=== PATIENT | male | born 1995 | race Caucasian/White ===

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

== ENCOUNTER 2017-08-27 01:29 | Emergency (ER) | payer OTHER ==
[~2017-08-27] VITALS: Ht 170.2 cm; Wt 58.4 kg
[2017-08-27] MEDS ORDERED: NAPROSYN500 MG PO (02:02)
[2017-08-27 02:15] VITALS: BP 141/85
== END 2017-08-27 02:20 | disposition home or self-care (01) ==
LOC: EME 01:29 → EXP 01:29
DX: S63.501A Unspecified sprain of right wrist, initial encounter (principal); W18.30XA Fall on same level, unspecified, initial encounter
CPT/HCPCS: 73110; 99281; 99283

== ENCOUNTER 2018-01-18 17:51 | Emergency (ER) | payer OTHER ==
[~2018-01-18] VITALS: Ht 172.7 cm; Wt 61.0 kg
[~2018-01-18 17:51] MED LIST changes: +NAPROSYN500 MG PO
[2018-01-18 20:54] LABS: HEMATOCRIT 45.7 % (38.0-50.0); HEMOGLOBIN 17.1 G/DL (12.5-16.6); MCH 33.8 PG (29.0-34.0); MCHC 37.4 G/DL (30.0-36.0); MCV 90.3 FL (86-99); RBC DIS.WIDTH-CV 11.4 % (11.8-14.6); RBC DIS.WIDTH-SD 37.3 % (39-53); RED BLOOD COUNT 5.06 M/uL (4.00-5.50); WHITE BLOOD COUNT 8.5 K/uL (4.1-10.2)
[2018-01-18 20:58] LABS: D-DIMER ELISA < 150.00 ng/mLDDU (<230)
[2018-01-18 21:02] LABS: CHLORIDE 102 mEq/L (99-109); POTASSIUM 4.1 mEq/L (3.7-5.4); SODIUM 139 mEq/L (136-147)
[2018-01-18 21:03] LABS: MAGNESIUM 2.5 mg/dL (1.3-2.7)
[2018-01-18 21:04] LABS: GLUCOSE 75 mg/dL (70-99)
[2018-01-18 21:08] LABS: GFR ESTIMATE (CALCULATED) > 59 mL/min/ (58.99-99999)
[2018-01-18 21:09] LABS: UREA NITROGEN (BUN) 21 mg/dL (9-23)
[2018-01-18 21:11] LABS: CREATINE KINASE 182 IU/L (1-294)
[2018-01-18 21:13] LABS: TROP-I INTERPRETATION NEGATIVE; TROPONIN-I < 0.01 ng/mL (0.0-0.30)
[2018-01-18 22:01] LABS: PLAT.SUFFICIENCY ADEQUATE; PLATELET COUNT 197 K/uL (156-360)
[2018-01-18] MEDS ORDERED: MOTRIN800 MG PO (22:21)
[2018-01-18 23:22] VITALS: BP 138/95
== END 2018-01-18 23:23 | disposition home or self-care (01) ==
LOC: EME 17:51
PROVIDERS: Physician Assistant
DX: R07.89 Other chest pain (principal); F17.290 Nicotine dependence, other tobacco product, uncomplicated
CPT/HCPCS: 71046; 80048; 82550; 83735; 84484; 85027; 85379; 93005; 99281; 99284

== ENCOUNTER 2018-06-03 01:44 | Emergency (ER) | payer OTHER ==
[~2018-06-03] VITALS: Ht 172.7 cm; Wt 62.6 kg
[~2018-06-03 01:44] MED LIST changes: +MOTRIN800 MG PO
[2018-06-03] MEDS ORDERED: IBU600 MG PO (03:23)
[2018-06-03 03:42] VITALS: BP 122/70
== END 2018-06-03 03:43 | disposition home or self-care (01) ==
LOC: EME 01:44
DX: R09.1 Pleurisy (principal); F17.200 Nicotine dependence, unspecified, uncomplicated
CPT/HCPCS: 71046; 93005; 99281; 99283